=== PATIENT | male | born 1950 | race Caucasian/White ===

== ENCOUNTER → 2016-06-22 | Outpatient (CLI) | payer MEDICAID, OTHER ==
[~2016-06-22] MED LIST: AMLO5TAB2 PO; ASPI81TA19; HUMALOG SQ; LANTUS2P; LISI-515 PO; LYRI100C PO; PLAV75TA29 PO; ZOCO20TA PO
[2016-06-22 16:28] LABS: HEMOGLOBIN A1b 1.6 %; HEMOGLOBIN Ao 83.1 %; HEMOGLOBIN LA1C 2.5 %; HEMOGLOBIN P3 4.2 %
== END ==
LOC: CLAB 07:06
DX: N18.2 Chronic kidney disease, stage 2 (mild) (principal); I12.9 Hypertensive chronic kidney disease with stage 1 through stage 4 chronic kidney disease, or unspecified chronic kidney disease; E11.40 Type 2 diabetes mellitus with diabetic neuropathy, unspecified; E11.29 Type 2 diabetes mellitus with other diabetic kidney complication; R97.20 Elevated prostate specific antigen [PSA]; E78.5 Hyperlipidemia, unspecified; R80.9 Proteinuria, unspecified; E66.9 Obesity, unspecified; Z68.32 Body mass index [BMI] 32.0-32.9, adult
CPT/HCPCS: 36415; 83036

== ENCOUNTER → 2016-11-16 | Outpatient (CLI) | payer MEDICAID, OTHER ==
[2016-11-16 07:41] LABS: HEMATOCRIT 38.1 % (39.0-51.0); MEAN CELL VOLUME 83.7 FL (80.0-100.0); MEAN CORPUSCULAR HEMOGLOBIN 28.7 PG (27.0-34.0); MEAN CORPUSCULAR HGB CONC 34.2 % (32.0-36.0); PLATELET COUNT 289 TH/MM3 (150-450); RED BLOOD COUNT 4.55 MIL/MM3 (4.50-5.90); RED CELL DISTRIBUTION WIDTH 14.3 % (11.6-17.2); REVIEW FLAG FINAL; WHITE BLOOD COUNT 8.5 TH/MM3 (4.0-11.0)
[2016-11-16 08:00] LABS: ANION GAP 8 MEQ/L (5-15); AST (GOT) 17 U/L (15-37); BICARBONATE 27.9 MEQ/L (21.0-32.0); BLOOD UREA NITROGEN 20 MG/DL (7-18); CHLORIDE 106 MEQ/L (98-107); GLOMERULAR FILTRATION RATE 54 ML/MIN (>89); GLUCOSE,FASTING 107 MG/DL (74-99); POTASSIUM 3.8 MEQ/L (3.5-5.1); SODIUM (NA) 142 MEQ/L (136-145)
[2016-11-16 08:01] LABS: ALT (GPT) 18 U/L (12-78)
[2016-11-16 08:11] LABS: ALKALINE PHOSPHATASE 115 U/L (45-117); HDL CHOLESTEROL 39.3 MG/DL (40.0-60.0); LDL CHOLESTEROL 96 MG/DL (0-99); TOTAL BILIRUBIN ADULT 0.4 MG/DL (0.2-1.0)
[2016-11-16 15:32] LABS: HEMOGLOBIN A1b 1.8 %; HEMOGLOBIN Ao 82.8 %; HEMOGLOBIN LA1C 2.2 %; HEMOGLOBIN P3 4.5 %
== END ==
LOC: CLAB 07:22
DX: R97.20 Elevated prostate specific antigen [PSA] (principal); E78.5 Hyperlipidemia, unspecified; R80.9 Proteinuria, unspecified; I12.9 Hypertensive chronic kidney disease with stage 1 through stage 4 chronic kidney disease, or unspecified chronic kidney disease; N18.3 Chronic kidney disease, stage 3 (moderate); E11.22 Type 2 diabetes mellitus with diabetic chronic kidney disease; E11.40 Type 2 diabetes mellitus with diabetic neuropathy, unspecified; E66.9 Obesity, unspecified; Z68.32 Body mass index [BMI] 32.0-32.9, adult
CPT/HCPCS: 36415; 80053; 80061; 83036; 84443; 85027

== ENCOUNTER → 2017-03-15 | Outpatient (CLI) | payer MEDICARE, OTHER ==
[2017-03-15 08:53] LABS: HEMATOCRIT 38.5 % (39.0-51.0); MEAN CELL VOLUME 84.8 FL (80.0-100.0); MEAN CORPUSCULAR HEMOGLOBIN 29.5 PG (27.0-34.0); MEAN CORPUSCULAR HGB CONC 34.7 % (32.0-36.0); PLATELET COUNT 336 TH/MM3 (150-450); RED BLOOD COUNT 4.54 MIL/MM3 (4.50-5.90); RED CELL DISTRIBUTION WIDTH 13.5 % (11.6-17.2); REVIEW FLAG FINAL; WHITE BLOOD COUNT 10.2 TH/MM3 (4.0-11.0)
[2017-03-15 09:24] LABS: ANION GAP 9 MEQ/L (5-15); AST (GOT) 15 U/L (15-37); BICARBONATE 25.7 MEQ/L (21.0-32.0); BLOOD UREA NITROGEN 21 MG/DL (7-18); CHLORIDE 104 MEQ/L (98-107); GLOMERULAR FILTRATION RATE 58 ML/MIN (>89); GLUCOSE,FASTING 156 MG/DL (74-99); POTASSIUM 3.6 MEQ/L (3.5-5.1); SODIUM (NA) 139 MEQ/L (136-145)
[2017-03-15 09:25] LABS: ALT (GPT) 13 U/L (12-78)
[2017-03-15 09:34] LABS: ALKALINE PHOSPHATASE 126 U/L (45-117); HDL CHOLESTEROL 37.2 MG/DL (40.0-60.0); LDL CHOLESTEROL 51 MG/DL (0-99); TOTAL BILIRUBIN ADULT 0.4 MG/DL (0.2-1.0)
[2017-03-15 15:42] LABS: HEMOGLOBIN A1b 1.8 %; HEMOGLOBIN Ao 83.2 %; HEMOGLOBIN LA1C 2.5 %; HEMOGLOBIN P3 4.3 %
== END ==
LOC: CLAB 08:17
DX: I12.9 Hypertensive chronic kidney disease with stage 1 through stage 4 chronic kidney disease, or unspecified chronic kidney disease (principal); N18.3 Chronic kidney disease, stage 3 (moderate); E11.22 Type 2 diabetes mellitus with diabetic chronic kidney disease; E11.40 Type 2 diabetes mellitus with diabetic neuropathy, unspecified; R97.20 Elevated prostate specific antigen [PSA]; E78.5 Hyperlipidemia, unspecified; R80.9 Proteinuria, unspecified; E66.9 Obesity, unspecified; Z68.31 Body mass index [BMI] 31.0-31.9, adult
CPT/HCPCS: 36415; 80053; 80061; 82043; 83036; 84443; 85027

== ENCOUNTER → 2017-08-26 | Outpatient (CLI) | payer MEDICARE, OTHER ==
[2017-08-26 08:36] LABS: HEMATOCRIT 41.7 % (39.0-51.0); HEMOGLOBIN 14.4 GM/DL (13.0-17.0); MEAN CELL VOLUME 83.9 FL (80.0-100.0); MEAN CORPUSCULAR HEMOGLOBIN 29.1 PG (27.0-34.0); MEAN CORPUSCULAR HGB CONC 34.7 % (32.0-36.0); PLATELET COUNT 350 TH/MM3 (150-450); RED BLOOD COUNT 4.96 MIL/MM3 (4.50-5.90); RED CELL DISTRIBUTION WIDTH 14.3 % (11.6-17.2)
[2017-08-26 08:51] LABS: ALBUMIN 4.1 GM/DL (3.4-5.0); ALT (GPT) 18 U/L (12-78); AST (GOT) 23 U/L (15-37); CHLORIDE 106 MEQ/L (98-107); CHOLESTEROL 145 MG/DL (120-200); CREATININE 1.69 MG/DL (0.60-1.30); GLOMERULAR FILTRATION RATE 41 ML/MIN (>89); GLUCOSE,FASTING 96 MG/DL (74-99); SODIUM (NA) 142 MEQ/L (136-145)
[2017-08-26 09:01] LABS: ALKALINE PHOSPHATASE 102 U/L (45-117); BLOOD UREA NITROGEN 23 MG/DL (7-18); CHOLESTEROL/ HDL RATIO 3.81 RATIO; LDL CHOLESTEROL 79 MG/DL (0-99); TOTAL BILIRUBIN ADULT 0.5 MG/DL (0.2-1.0); TOTAL PROTEIN 8.6 GM/DL (6.4-8.2); TRIGLYCERIDES 140 MG/DL (42-150)
== END ==
LOC: CLAB 07:59
DX: I12.9 Hypertensive chronic kidney disease with stage 1 through stage 4 chronic kidney disease, or unspecified chronic kidney disease (principal); E11.22 Type 2 diabetes mellitus with diabetic chronic kidney disease; E11.40 Type 2 diabetes mellitus with diabetic neuropathy, unspecified; N18.3 Chronic kidney disease, stage 3 (moderate); R97.20 Elevated prostate specific antigen [PSA]; E78.5 Hyperlipidemia, unspecified; R80.9 Proteinuria, unspecified; Z12.11 Encounter for screening for malignant neoplasm of colon
CPT/HCPCS: 36415; 80053; 80061; 82043; 83036; 84153; 84443; 85027